=== PATIENT | female | born 1990 | race Two or more races ===

== ENCOUNTER 2016-09-22 17:30 | Emergency (ER) | payer SELFPAY ==
[~2016-09-22] VITALS: Ht 162.6 cm; Wt 73.9 kg
[2016-09-22 21:18] VITALS: BP 135/86
[2016-09-22] MEDS ORDERED: KETOROLAC TROMETH 30 MG/ML 1ML VIAL IV ONE (21:45)
== END 2016-09-22 22:00 | disposition home or self-care (01) ==
LOC: ER 17:40
DX: M50.222 Other cervical disc displacement at C5-C6 level (principal)
CPT/HCPCS: 96374; 99284; J1885

== ENCOUNTER 2024-09-17 09:22 | Observation (INO) | payer OTHER, MEDICAID ==
[~2024-09-17] VITALS: Ht 162.6 cm; Wt 101.6 kg
[2024-09-17 09:53] LABS: Urine Bacteria None Seen /hpf (None Seen)
[2024-09-17 10:00] LABS: Basophils # (auto) 0 10 ^3/uL (0-0.2); Basophils % (auto) 0.6 % (0.0-2.0); Eosinophils # (auto) 0 10 ^3/uL (0-0.8); Eosinophils % (auto) 0.4 % (0.0-7.0); Hematocrit 36.7 % (36.0-46.0); Hemoglobin 12.9 g/dL (12.2-16.2); Lymphocytes # (auto) 1.5 10 ^3/uL (0.4-5.4); Lymphocytes % (auto) 22.3 % (10.0-50.0); Mean Corpuscular Hemoglobin 32.4 pg (28.0-32.0); Mean Corpuscular Hgb Conc. 35.2 g/dL (32.0-36.0); Mean Corpuscular Volume 92.1 fL (80.0-100.0); Monocytes # (auto) 0.4 10 ^3/uL (0-1.3); Monocytes % (auto) 5.4 % (0.0-12.0); Neutrophils # (auto) 4.9 10 ^3/uL (1.6-8.6); Neutrophils % (auto) 71.3 % (37.0-80.0); Nucleated Red Blood Cells % 0.1 %; Platelet Count (auto) 253 10^3/uL (140-450); Red Blood Cells 3.98 10^6/uL (4.0-5.20); Red Cell Distribution Width 13.3 % (11.8-14.3); White Blood Cell 6.8 10^3/uL (4.4-10.8)
[2024-09-17 10:07] LABS: INR 0.97 (0.9-1.15); Partial Thromboplastin Time 24.8 SEC (24.5-34.5); Prothrombin Time 10.3 sec (9.3-11.8)
[2024-09-17 10:13] LABS: Urine Blood Negative /uL (Negative); Urine Clarity Clear (Clear); Urine Color Light-Yellow (Yellow); Urine Protein, UAD Negative (Negative); Urine Specific Gravity 1.014 (1.001-1.035); Urine Squamous Epithelial Cell FEW /hpf (<5); Urine Urobilinogen Normal (Negative); Urine WBC 3 /HPF (0-5)
[2024-09-17 10:15] LABS: Creatinine, Urine 55.85 mg/dL (30.0-125.0); Urine Protein/Creatinine Ratio 0.11
[2024-09-17 10:16] LABS: Protein, Urine < 6.0 mg/dL (1-14)
[2024-09-17 10:18] LABS: Alanine Aminotransferase 31 U/L (7-40); Albumin 3.9 g/dL (3.2-4.8); Alkaline Phosphatase 80 U/L (46-116); Anion Gap 7 (5-15); Aspartate Aminotransferase 15 U/L (13-40); BUN/Creatinine Ratio 15.9 (10.0-20.0); Bilirubin, Total 0.4 mg/dL (0.2-1.0); Blood Urea Nitrogen 7 mg/dL (9-23); Carbon Dioxide 21 mmol/L (20-31); Chloride 109 mmol/L (98-107); Glucose 86 mg/dL (74-106); Potassium 3.8 mmol/L (3.5-5.1); Sodium 137 mmol/L (136-145); Total Protein 6.6 g/dL (5.7-8.2); Uric Acid 3.4 mg/dL (3.1-7.8)
--- NOTE | 2024-09-17 23:27 | DVHDS2 ---
Physician Discharge Progress N Final Diagnosis: ruled out preeclampsia Operations or Procedures: Operations or Procedures 33yo IUP@24+wks, +FM, denies UCs/LOF/VB/vision changes/RUQ pain. Pt has been having on and off headaches for the last week. PNC with Talya Suresh LM and uncomplicated thus far. VSS, normotensive NST reactive FKC/PTL/PreE precautions reviewed Dr. Lemus consulted, agrees with POC. Condition on Discharge: Stable Disposition: Home Discharge Instructions: Diet: Regular Activity: No Restrictions, As Tolerated Medications: see med list Follow Up Care: Specialist: f/u with primary licensed guide as scheduled for visits Discharge Statement: "Patient was advised to return to the ER or call 911 if any headaches, dizziness, shortness of breath, chest pain, abdominal pain, bleeding, fevers, or worsening of medical condition. Patient was counseled about treatment plan, medications, possible side effects, patientverbalized understanding. All questions were answered to the best of my ability. This discharge took greater then 30 minutes in planning, reviewing documentation, counseling the patient, and discussing with other team members." Visit Coding OBGYN Date of Service: Sep 17, 2024 Billing Provider: LEILA RUBIO CNM [facility] [facility] Common Visit Codes: [id number] OBS CARE (LOW) [employer] [employer] [facility] Procedure Codes: 02189-56- NON-STRESS TEST LEILA RUBIO CNM Sep 17, 2024 23:27
== END 2024-09-17 10:50 | disposition home or self-care (01) ==
LOC: LDRP 09:22
PROVIDERS: ADMIT Obstetrics & Gynecology; ATTEND Obstetrics & Gynecology
DX: O26.892 Other specified pregnancy related conditions, second trimester (principal); R51.9 Headache, unspecified; R79.1 Abnormal coagulation profile; Z98.890 Other specified postprocedural states; Z79.899 Other long term (current) drug therapy; Z3A.24 24 weeks gestation of pregnancy
CPT/HCPCS: 36415; 59025; 80053; 81001; 81002; 82570; 84156; 84550; 85025; 85610; 85730; 94760; G0378